=== PATIENT | male | born 1990 | race Caucasian/White ===

== ENCOUNTER 2018-02-09 23:04 | Emergency (ER) | payer SELFPAY ==
[~2018-02-09] VITALS: Ht 175.3 cm; Wt 77.3 kg
[2018-02-10] MEDS ORDERED: BUPIVACAINE HCL/PF 0.5% 30 ML VIAL INJ ONE (03:00)
[2018-02-10] MEDS ORDERED: CLINDAMYCIN 900 MG/D5% WATER 50 ML IV ONE (03:45)
[2018-02-10 04:49] VITALS: BP 137/88
== END 2018-02-10 04:51 | disposition home or self-care (01) ==
LOC: EMS 23:05
DX: K05.219 Aggressive periodontitis, localized, unspecified severity (principal); F17.210 Nicotine dependence, cigarettes, uncomplicated
CPT/HCPCS: 41800; 96365; 99284; J3490 ×2